=== PATIENT | male | born 1995 | race Caucasian/White ===

== ENCOUNTER 2023-02-04 08:09 | Emergency (ER) | payer MEDICAID ==
[~2023-02-04] VITALS: Ht 175.3 cm; Wt 77.0 kg
[2023-02-04 08:15] VITALS: BP 135/79
[2023-02-04] MEDS ORDERED: IBUPROFEN 600MG TABLET PO ONE (09:00)
[2023-02-04] MEDS ORDERED: IBUP-2029 MT (09:32)
== END 2023-02-04 10:15 | disposition home or self-care (01) ==
LOC: ER 08:09
DX: S93.402A Sprain of unspecified ligament of left ankle, initial encounter (principal); W13.9XXA Fall from, out of or through building, not otherwise specified, initial encounter; Y93.02 Activity, running; Y92.89 Other specified places as the place of occurrence of the external cause; Y99.8 Other external cause status
CPT/HCPCS: 29515; 73610; 99283; Z7610